=== PATIENT | male | born 1940 | race Caucasian/White ===

== ENCOUNTER 2020-04-07 06:18 | Observation (INO) ==
[~2020-04-07 06:18] MED LIST: Vancomycin 1,000 MG, Sodium Chloride IRRigation 1,000 ML IR ONE
[2020-04-07] MEDS ORDERED: CeFAZolin Syr 2,000MG/20 ML 2,000 MG/20 ML SYRINGE IVPB ONE (06:30)
[2020-04-07] MEDS ORDERED: Ringers Solution, Lactated 1,000 ML IVC SCH (06:30)
[2020-04-07] MEDS ORDERED: *HR* Remifentanil 2 MG VIAL IVP ONE (07:17)
[2020-04-07] MEDS ORDERED: *HR* Propofol 200 MG/20 ML VIAL IVP ONE (07:17)
[2020-04-07] MEDS ORDERED: *HR* FentaNYL (PF) 100 MCG/2 ML VIAL ONE (07:17)
[2020-04-07] MEDS ORDERED: Heparin 1,000 UNITS/500 mL 500 ML ONE (07:18)
[2020-04-07] MEDS ORDERED: Lidocaine HCL 4 ML Topical Solution (Laryng-O-Jet Kit Sterile Pak) TP ONE (07:20)
[2020-04-07] MEDS ORDERED: Lidocaine -MPF 2% 2 ML VIAL ONE ×2 (07:28→07:47)
[2020-04-07] MEDS ORDERED: *HR* Phenylephrine 10 MG/ML VIAL ONE (07:28)
[2020-04-07] MEDS ORDERED: Ondansetron 4 MG/2 ML VIAL ONE (07:28)
[2020-04-07] MEDS ORDERED: *HR* Rocuronium Bromide 50 MG/5 ML VIAL ONE (07:28)
[2020-04-07] MEDS ORDERED: *HR* Heparin 5,000 UNIT/ML VIAL ONE (07:36)
[2020-04-07 07:40] LABS: Adenovirus Not Detected (Not Detect); Bordetella Pertussis Not Detected (Not Detect); Chlamydophila pneumoniae Not Detected (Not Detect); Coronavirus 229E Not Detected (Not Detect); Coronavirus HKU1 Not Detected (Not Detect); Coronavirus NL63 Not Detected (Not Detect); Coronavirus OC43 Not Detected (Not Detect); Human Metapneumovirus Not Detected (Not Detect); Human Rhinovirus/Enterovirus Not Detected (Not Detect); Influenza A Subtype 2009 H1 Not Detected (Not Detect); Influenza B Not Detected (Not Detect); Mycoplasma pneumoniae Not Detected (Not Detect); Parainfluenza Virus 1 Not Detected (Not Detect); Parainfluenza Virus 2 Not Detected (Not Detect); Parainfluenza Virus 3 Not Detected (Not Detect); Parainfluenza Virus 4 Not Detected (Not Detect); Respiratory Syncytial Virus Not Detected (Not Detect); SARS-CoV-2 Not Detected (Not Detect)
[2020-04-07] MEDS ORDERED: Heparin 1,000 UNITS/500 mL 1,500 ML ONE (07:43)
[2020-04-07] MEDS ORDERED: *HR* Norepinephrine 4 MG/4 ML VIAL IVC ONE (07:51)
[2020-04-07] MEDS ORDERED: *HR* Vasopressin 20 UNIT/ML VIAL ONE (07:51)
[2020-04-07] MEDS ORDERED: Heparin 1,000 UNITS/500 mL 1,000 ML ONE (07:53)
[2020-04-07] MEDS ORDERED: Ondansetron 4 MG/2 ML VIAL IVP PRN ×2 (08:07→13:39)
[2020-04-07] MEDS ORDERED: *HR* Promethazine 25 MG/ML VIAL IVP PRN (08:07)
[2020-04-07] MEDS ORDERED: *HR* OxyCODONE Immed Rel 5 MG TABLET PO PRN ×3 (08:07→13:39)
[2020-04-07] MEDS ORDERED: EPHEDrine 50 MG/ML VIAL ONE (08:52)
[2020-04-07 09:09] LABS: ABG Base Excess -4 mEq/L (-2 to 3); ABG Chloride 105 mEq/L (98-107); ABG Glucose 87 mg/dL (60-95); ABG HCO3 21 mEq/L (21-27); ABG Oxygen Saturation 100 % (95-98); ABG PCO2 35 mmHg (35-45); ABG PH 7.38 pH Units (7.32-7.45); ABG PO2 231 mmHg (85-104); ABG TCO2 22 mEq/L (20-26)
[2020-04-07] MEDS: *HR* HYDROmorphone PF 0.5 MG/0.5 ML SYRINGE IVP PRN ×3 (11:35→12:00)
[2020-04-07] MEDS ORDERED: amLODIPine 5 MG TABLET PO SCH (13:39)
[2020-04-07] MEDS ORDERED: Naloxone 0.4 MG/ML INJ IVP PRN (13:39)
[2020-04-07] MEDS ORDERED: Finasteride 5 MG TABLET PO SCH (13:39)
[2020-04-07] MEDS ORDERED: Multivit/Ca/Min/Fe/FA 1 TAB TABLET PO SCH (13:39)
[2020-04-07] MEDS ORDERED: Ergocalciferol (VIT D2) 50,000 UNIT (1.25MG) CAP PO SCH (13:39)
[2020-04-07] MEDS ORDERED: Acetaminophen 325 MG TABLET PO PRN ×2 (13:39)
[2020-04-07] MEDS ORDERED: 0.9 % Sodium Chloride 1,000 ML IVC SCH (13:39)
[2020-04-07] MEDS ORDERED: *HR* HYDROcodone/Acet 5/325 mg TABLET PO PRN ×2 (13:39)
[2020-04-07] MEDS ORDERED: *HR* Labetalol 20 MG/4 ML SYRINGE IVP PRN (13:39)
[2020-04-07] MEDS: *HR* Metoprolol 5 MG/5 ML VIAL IVP SCH ×2 (16:08→17:21)
[2020-04-07 16:42] LABS: Basophils % 0.2 %; Eosinophils % 0.2 %; Hematocrit 36.7 % (37.5-50.1); Hemoglobin 11.9 g/dL (12.9-16.9); Immature Granulocytes % 0.5 % (0-4); Lymphocytes # 1.5 K/mcL (0.6-4.6); Lymphocytes % 11.5 %; Mean Corpuscular HGB Conc 32.4 g/dL (31.6-35.5); Mean Corpuscular Hemoglobin 28.9 pg (28.0-33.3); Mean Corpuscular Volume 89.1 fL (83.0-100.0); Mean Platelet Volume 9.1 fL (9.4-12.4); Monocytes # 0.8 K/mcL (0.0-1.3); Monocytes % 6.6 %; Neutrophils # 10.2 K/mcL (1.6-8.9); Platelet Count 306 K/mcL (140-400); Red Blood Count 4.12 M/mcL (4.19-5.50); Red Cell Distribution Width 14.2 % (11.5-14.5); White Blood Count 12.6 K/mcL (4.3-11.1)
[2020-04-07 16:59] LABS: BUN/Creatinine Ratio 16 (6-26); Blood Urea Nitrogen 14 mg/dL (8-23); Calcium 9.5 mg/dL (8.6-10.3); Carbon Dioxide 24 mEq/L (23-29); Chloride 105 mEq/L (98-107); Glucose 105 mg/dL (70-105); Osmolality,Calculated 281 (280-300); Potassium 4.3 mEq/L (3.5-5.1); Sodium 135 mEq/L (136-145); eGFR For African Americans > 60 (> 60); eGFR For Non-African Americans > 60 (> 60)
[2020-04-07] MEDS ORDERED: CeFAZolin 2 GM/120 ML BAG IVPB SCH (18:00)
[2020-04-07 19:27] VITALS: BP 98/68
[2020-04-08] MEDS ORDERED: *HR* Heparin 5,000 UNIT/ML VIAL SQ SCH ×2 (06:00)
== END 2020-04-07 20:15 | disposition home or self-care (01) | DRG 269 ==
LOC: SAMDAY 06:18 → 2NNU 13:35 → INTOOBSV 13:35
PROVIDERS: ADMIT Surgery; ATTEND Surgery